=== PATIENT | male | born 1960 | race Caucasian/White ===

== ENCOUNTER 2018-05-08 16:52 | Observation (INO) ==
--- NOTE | 2018-05-08 17:46 | Diag Imaging Result Doc PS360 ---
EXAM: CT HEAD W/O CONTRAST - 05/08/2018 HISTORY: stroke like symptoms TECHNIQUE: CT head without contrast COMPARISON: None. FINDINGS: There is no evidence of intracranial hemorrhage, mass effect, midline shift, or hydrocephalus. There is no evidence of infarct, although acute infarcts may not be immediately visible. There is no evidence of skull fracture. IMPRESSION: No visible acute intracranial abnormality. This exam was performed using automated exposure control, adjustment of mA or kV according to patient size, and/or use of iterative reconstruction technique. Electronically signed by Segun Mcelroy 05/08/2018 5:43 PM
--- NOTE | 2018-05-08 18:00 | Diag Imaging Result Doc PS360 ---
EXAM: CHEST-PORTABLE - 05/08/2018 HISTORY: stroke like symptoms TECHNIQUE: Portable chest COMPARISON: None. FINDINGS: Heart size is normal. There are a couple left lower lung granulomas from old granulomatous disease. Lungs otherwise appear essentially clear. There is no consolidation, pleural effusion, or pneumothorax identified. IMPRESSION: No evidence of acute disease. Electronically signed by Segun Mcelroy 05/08/2018 5:58 PM
[2018-05-08 18:03] LABS: URINE SOURCE CLEAN CATCH
[2018-05-08 18:07] LABS: BASO# 0.04 X1000 (0.0-0.2); BASO% 0.5 % (0.0-0.8); EOS# 0.32 X1000 (0.0-0.7); EOS% 3.8 % (0.0-10.0); HEMATOCRIT 45.4 % (42.0-52.0); HEMOGLOBIN 15.8 g/dL (14.0-18.0); IMM GRAN# 0.08 X1000 (0.0-0.04); LYMPH# 1.86 X1000 (1.2-3.4); LYMPH% 22.4 % (20.5-51.1); MCH 29.6 PG (27-31); MCHC 34.8 g/dL (33-37); MONO# 0.81 X1000 (0.11-0.59); MONO% 9.7 % (1.7-9.3); MPV 10.4 FL (7.4-10.4); NEUT# 5.21 X1000 (1.4-6.5); NEUT% 62.6 % (42.2-75.2); PLT 196 X1000 (130-400); RBC 5.34 XMIL (4.7-6.1); RDW 12.6 % (11.5-14.5); WBC 8.32 X1000 (4.8-10.8)
[2018-05-08 18:08] LABS: BILIRUBIN URINE NEGATIVE (NEGATIVE); BLOOD URINE NEGATIVE (NEGATIVE); COLOR YELLOW; GLUCOSE URINE >1000 mg/dL (NEGATIVE); KETONE URINE NEGATIVE (NEGATIVE); LEUKOCYTES URINE NEGATIVE (NEGATIVE); NITRITE URINE NEGATIVE (NEGATIVE); PROTEIN URINE TRACE mg/dL (NEGATIVE); SP GRAVITY URINE 1.019; TURBIDITY URINE CLEAR (CLEAR); UR EPITHELIAL CELLS <10 /HPF (<10); URINE BACTERIA NEGATIVE /HPF; URINE RBC <10 /HPF (<10); URINE WBC <10 /HPF (<10); UROBILINOGEN URINE NORMAL (NORMAL)
[2018-05-08 18:18] LABS: INR 0.92; PROTIME 13.2 Seconds (11.0-16.0)
[2018-05-08 18:19] LABS: PTT 28.4 Seconds (22.3-41.8)
[2018-05-08 18:38] LABS: AGAP 17; ALB/GLOB RATIO 1.5; ALBUMIN 4.4 g/dL (3.5-5.0); ALKALINE PHOSPHATASE 89 U/L (32-122); BUN 12 mg/dL (8-22); CALCIUM 9.3 mg/dL (8.8-10.2); CHLORIDE 98 mmol/L (98-107); COSMO 285; CREATININE 0.7 mg/dL (0.7-1.2); ESTIMATED GFR > 60; GLUCOSE 335 mg/dL (70-104); GOT 20 U/L (10-34); GPT 28 U/L (10-44); SODIUM 136 mmol/L (136-145); TCO2 21 mmol/L (25-35); TOTAL BILIRUBIN 0.48 mg/dL (0.20-1.00); TOTAL PROTEIN 7.4 g/dL (6.3-8.3)
[2018-05-08] MEDS ORDERED: SODIUM CHLORIDE 0.9% INJ PRN (19:44)
[2018-05-08] MEDS ORDERED: TYLENOL PO PRN (19:44)
[2018-05-08] MEDS ORDERED: PHENERGAN IV PRN (19:44)
[2018-05-08] MEDS ORDERED: LOVENOX SUBQ SCH (21:00)
[2018-05-08] MEDS ORDERED: COREG PO SCH (21:00)
--- NOTE | 2018-05-08 23:42 | HISTORY AND PHYSICAL ---
CHIEF COMPLAINT: Facial numbness. HISTORY OF PRESENT ILLNESS: Mr. Aric Sharif is a 57-year-old gentleman who is well known to me. He has a history of essential hypertension and type 2 insulin-dependent diabetes mellitus. He woke up this morning with numbness, tingling and apparent left facial droop. He denied any sudden loss of vision in 1 eye, slurred speech or unilateral limb weakness. Upon further questioning, he reported that he had a headache and diminished taste. He has not had any preceding URI type symptoms. PAST MEDICAL HISTORY: As above. PAST SURGICAL HISTORY: Arthroscopy of the left knee, bilateral carpal tunnel release. ALLERGIES: No known drug allergies. FAMILY HISTORY: Noncontributory. SOCIAL HISTORY: He denies the consumption of alcoholic beverages. He is a former smoker. He is and lives with his spouse. MEDICATIONS: Aspirin 81 mg daily, amlodipine 10 mg daily, Coreg 12.5 mg b.i.d., losartan HCT 100/12.5 daily, Humalog 75/25 of 40 units in the morning and 45 units in the evening. REVIEW OF SYSTEMS: Constitutional: He denies any recent weight gain or weight loss. HEENT: See HPI. Cardiovascular: No chest pain, palpitations, or anginal equivalents. Pulmonary: No shortness of breath, PND or orthopnea. Gastrointestinal: No reflux, dysphagia, melena, hematochezia, change in bowel habits or rectal bleeding. Endocrine: No polyuria. No polydipsia. No cold or heat intolerance. Skin: No easy bruisability. Genitourinary: No leakage of urine with coughing or laughing. Neurologic: No migraines or seizures. PHYSICAL EXAMINATION: GENERAL: This is a well-developed, well-nourished 57-year-old gentleman in no apparent distress. VITAL SIGNS: Temperature 98.1 degrees, pulse 80, respiration 80, BP 177/90. HEENT: Fundi with arteriolar wall thickening. Pupils equal, round, reactive to light. Tongue is midline. There is diminished light touch over the lower left face. There is left facial droop and paralysis of the frontal muscles on the left. He has normal tone and strength in the upper and lower extremities bilaterally. DTRs are 2+ and symmetric. He is alert and oriented to name, place, and time. NECK: Supple. No masses, JVD or bruits. CARDIOVASCULAR: Regular rate and rhythm. LUNGS: Clear. ABDOMEN: Soft, nontender, with active bowel sounds. No hepatosplenomegaly. No abdominal bruits. EXTREMITIES: Without edema. SKIN: No palpable purpura. GENITOURINARY/RECTAL: Exams deferred. NEUROLOGIC: He is alert and oriented to name, place, and time. He has left-sided facial droop and paralysis of the left face. He has diminished light touch over the lower left face. He has normal tone and strength in the upper and lower extremities. DTRs are 2+ and symmetric. ASSESSMENT AND PLAN: 1. Left facial droop. He certainly has multiple risk factors for cerebral vascular disease. His initial CT scan of the brain was unremarkable. I am going to begin Lovenox 1 mg/kg subcutaneously b.i.d. We will perform neurologic checks q.3 hours and record. We will consult Neurology in the morning. Because of the left-sided facial paralysis and diminished taste sensation, I am more concerned that he has Westbrook's palsy rather than a true a TIA or stroke. I am going to begin prednisone 60 mg tonight. 2. Hypertension. Blood pressure is a little bit too high. He has not had his evening medicines. We will continue his regular home medicines and follow his blood pressure closely. 3. Type 2 insulin-dependent diabetes mellitus. We will place him on patterned sugars, Humulin R sliding scale, 1800 calorie ADA diet and Humalog 75/25 of 40 units in the morning, 45 units at night. Given his clinical presentation and comorbid conditions, I believe that admission to [facility] overnight for further evaluation and management of the left facial droop is indicated. He certainly is at a higher risk for cerebral vascular disease. At this point in time, I anticipate that he will only be in the hospital for at least 1 midnight and I will therefore place him in outpatient status with observation services. cc: Jessika Marmolejo MD
[2018-05-09] MEDS ORDERED: HUMALOG MIX 75/25 SUBQ SCH ×2 (07:00→16:00)
[2018-05-09 07:56] VITALS: BP 143/83
[2018-05-09] MEDS ORDERED: PREDNISONE PO SCH (09:00)
[2018-05-09] MEDS ORDERED: VALTREX PO SCH (09:00)
[2018-05-09] MEDS ORDERED: ASPIRIN PO SCH (09:00)
[2018-05-09] MEDS ORDERED: HYZAAR 100/12.5 MG TAB PO SCH (09:00)
[2018-05-09] MEDS ORDERED: NORVASC PO SCH (09:00)
--- NOTE | 2018-05-09 09:31 | EKG Report ---
Test Performed on : 05/08/2018 5:29:34 PM Test Reason : Stroke like symptoms Blood Pressure : / mmHG Vent. Rate : 072 BPM Atrial Rate : 072 BPM P-R Int : 146 ms QRS Dur : 088 ms QT Int : 396 ms P-R-T Axes : 056 008 056 degrees QTc Int : 433 ms Normal sinus rhythm. Normal ECG No previous ECGs available Unconfirmed Result
--- NOTE | 2018-05-10 05:47 | DISCHARGE SUMMARY ---
ADMISSION DATE: 05/08/2018 DISCHARGE DATE: 05/09/2018 DISCHARGE DIAGNOSES: 1. Acute left-sided Westbrook's palsy. 2. Essential hypertension. 3. History of tobacco abuse. 4. Type 2 insulin-dependent diabetes mellitus, well controlled. 5. Chronic insulin usage. DISCHARGE INSTRUCTIONS: 1. Return to clinic in 1 week to see me, Dr. Dago Marmolejo. 2. Activity as tolerated. 3. 1800 calorie ADA diet. 4. Medications: Aspirin 325 mg daily, amlodipine 10 mg daily, Coreg 12.5 mg b.i.d., losartan HCT 100/12.5 one p.o. daily, and Valtrex 500 mg b.i.d. for 7 days. DISCHARGE PHYSICAL EXAMINATION: General: This is a well-developed and well-nourished 57-year-old gentleman in no apparent distress. Vital Signs: He is afebrile. Pulse 66, respirations 20, BP 143/83. Cardiovascular: Regular rate and rhythm. Lungs: Clear. Abdomen: Soft and nontender with active bowel sounds. Neurologic: He has diminished light touch over the upper and lower portion of the left side of his face. He has asymmetrical small smile with some facial droop to the left. He is able to close his eyes. He has diminished taste sensation. He has normal tone and strength in the upper and lower extremities. DTRs are 2+ and symmetric. HOSPITAL COURSE: Mr. Sharif was admitted to [facility] for evaluation of facial droop. Because of his multiple risk factors for cerebral vascular disease such as insulin-dependent diabetes mellitus and hypertension, we admitted him to [facility] to rule out a TIA. He remained in normal sinus rhythm throughout his hospitalization. His blood pressure remained stable. He did not have any carotid bruits on examination. His CT scan of the brain was unremarkable. Neurologically he had no other deficits. Overnight there was no substantial change in his symptoms. On examination he has paralysis of the left side of the face and decreased light touch over the left cheek. He is able to close his eyes, but is not able to contract the muscles of his left forehead. We felt that in all likelihood that he has acute Westbrook's palsy. Because of the history of insulin-dependent diabetes mellitus, prednisone is contraindicated. I spoke to Dr. Benson in regard to the patient and we will place him on Valtrex 500 mg b.i.d. for 7 days. I will see him back in the office in 1 week. He has a longstanding history of essential hypertension. His blood pressure was initially elevated upon arrival. We resumed his regular home medications and his blood pressure stabilized. His blood pressure was 143/83 at the time of discharge. He denied any chest pain, palpitations, or anginal equivalents. He does have a history of type 2 insulin-dependent diabetes mellitus. He was maintained on an 1800 calorie ADA diet, pattern sugars and Humulin R sliding scale, and his regular home dosage of insulin. Having reached maximum hospital benefit, the patient was discharged in stable condition. cc: Jessika Marmolejo MD
== END 2018-05-09 10:03 | disposition home or self-care (01) ==
LOC: 3N 16:52 → ED 16:52
PROVIDERS: ADMIT Internal Medicine; ATTEND Internal Medicine
CPT/HCPCS: 36415; 70450; 71010; 71045; 80053; 81001; 82948; 84484; 85025; 85610; 85730; 93005; 96372; 99285; A9270; G0378; J1650; XXXXX